=== PATIENT | male | born 1965 | race Caucasian/White ===

== ENCOUNTER 2022-08-30 14:34 | Outpatient (AMB) | payer MEDICARE, MEDICAID, SELFPAY ==
[2022-08-30 14:35] VITALS: BP 112/84; PULSE 81; O2SAT 96; BMI 26.0
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
== END 2022-08-30 16:00 | disposition home or self-care (01) ==
PROVIDERS: Visit Provider Nurse Practitioner Family
DX: R25.1 Tremor, unspecified (principal); R29.898 Other symptoms and signs involving the musculoskeletal system
CPT/HCPCS: 99204

== ENCOUNTER → 2022-08-30 14:34 | Outpatient (BNVA) | payer MEDICARE, MEDICAID, SELFPAY | PROVIDERS: Visit Provider Nurse Practitioner Family | DX: R25.1 Tremor, unspecified (principal); R29.898 Other symptoms and signs involving the musculoskeletal system | CPT/HCPCS: 99202 ==

== ENCOUNTER 2022-10-11 10:07 | Outpatient (REF) | payer MEDICARE, MEDICAID, SELFPAY ==
--- NOTE | ~2022-10-11 | MR_ITS ---
EXAMINATION: MR BRAIN WITHOUT CONTRAST CLINICAL INFORMATION: Tremor. Rigidity. COMPARISON: None. TECHNIQUE: Multiplanar, multisequence imaging of the brain was performed without contrast. FINDINGS: No diffusion abnormalities are identified to suggest an acute or subacute infarct. The ventricles are normal in size. No mass effect or midline shift is seen. Nonspecific mild bifrontal white matter signal changes noted. No extra-axial fluid collections are seen. The brainstem and cerebellum are normal. The gradient refocused acquisition is normal. The craniovertebral junction, marrow signal, and midline structures are normal. The major intracranial flow voids at the level of the mary's igloo of [place] are preserved. The dural venous sinus flow voids are maintained. The mastoid air cells and paranasal sinuses are well aerated. MR/MR head/brain wo con IMPRESSION: No acute intracranial process. Nonspecific mild scattered white matter signal changes which may be due to chronic microangiopathy.
== END 2022-10-11 10:08 | disposition home or self-care (01) ==
LOC: HO.MRI 10:07
PROVIDERS: PCP Internal Medicine; Visit Provider Nurse Practitioner Family
DX: R25.1 Tremor, unspecified (principal); R29.898 Other symptoms and signs involving the musculoskeletal system; E11.9 Type 2 diabetes mellitus without complications; E78.5 Hyperlipidemia, unspecified
CPT/HCPCS: 70551

== ENCOUNTER 2022-12-08 12:35 | Outpatient (AMB) | payer MEDICARE, MEDICAID, SELFPAY ==
--- NOTE | 2022-12-08 12:42 | MHC.OFFVIS ---
Intake Vital Signs 12/08/22 13:01 Height 5 ft 9 in Weight 182 lb BMI 26.9 BP 112/78 Blood Pressure Location Rt brachial Position Sitting Pulse 80 Pulse Source Pulse Oximeter Pulse Oximetry (%) 96 Oxygen Delivery Method Room Air Intake Visit Reasons: 3m f/u Tremors-LVM Intake Note: Patient presents for 3 month follow up tremor. Patient states since the last time i had my MRI that's all. Allergies peas Allergy (Unknown, Verified 12/08/22 13:02) Stomach Upset Seasonal Allergies Allergy (Unknown, Verified 12/08/22 13:02) Unknown olives Allergy (Unknown, Uncoded 12/08/22 13:02) Stomach Upset Medication List - Last Reconciled 12/08/22 by REYMUNDO Hagen atorvastatin 20 mg orally; mon, wed, fri bupropion HCl 100 mg PO BEDTIME cholecalciferol (vitamin D3) 50 mcg PO DAILY divalproex 500 mg PO BID loperamide 2 mg PO DAILY lorazepam 1 mg PO BEDTIME PRN metformin 500 mg PO DAILY olanzapine 10 mg PO BEDTIME propranolol 60 mg PO DAILY semaglutide (Ozempic) 0.5 mg subcut QWEEK [vitamin E 400 PO BID] HPI HPI Comments History of Present Illness Details 57-yr-old male presents for f/u visit for tremor. Pt is accompanied by his partner, Chan. Pt denies any significant interval medical changes. Pt has been doing hand therapy at [facility]- he does feel that this helped his hand strength and dexterity. 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 He feels the propranolol is still helpful, but does have still have tremor. For instance, now has tremor but is able to carry a cup w/o spilling. Sometimes has a moment of difficulty w/ word retrieval. MR/MR head/brain wo con IMPRESSION: No acute intracranial process. Nonspecific mild scattered white matter signal changes which may be due to chronic microangiopathy. [facility] Medical History (Updated 12/15/22 @ 17:19 by REYMUNDO Hagen) Diabetes HLD (hyperlipidemia) Bipolar disorder FRANK on CPAP Surgical History Hx of cholecystectomy Family History Father Lung cancer Social History Alcohol intake: never Patient Tobacco Use Status: Never used Tobacco Review of Systems Const All systems reviewed & are unremarkable except as noted in HPI and below Physical Exam Vital Signs: Last Vital Signs Pulse 80 12/08/22 13:01 BP 112/78 12/08/22 13:01 Pulse Ox 96 12/08/22 13:01 Oxygen Delivery Method Room Air 12/08/22 13:01 BMI result Body Mass Index 26.9 Const General: cooperative and no acute distress Orientation/consciousness: patient oriented x3 HEENT Head: Yes normocephalic Resp Effort & Inspection: normal respiratory effort and able to speak in complete sentences Neuro Other: General: A&O x's 3 Expression: Mild decreased expression Voice: Intact Tremor: Predominantly L > R postural and kinetic tremor. BUE rest tremor elicited by BLE foot taps. Mild chin tremor. Tone: BUE rigidity- wrists and elbows Dyskinesia: None FFM: Ok Foot taps: Slightly decreased fluidity Gait: Stands easily, slight stoop in shoulder with decreased arm swing, narrow heel base, but steady gait. Psych: Pleasant affect General: patient oriented x3 and CN's II-XI intact bilaterally Cognition (Neuro): normal cognition Motor exam (neuro): 5/5 motor strength present throughout Psych Appearance: grossly normal Mental Status: mental status grossly normal Speech and movement: Clear speech present Attitude: cooperative Assessment & Plan Assessment & Plan (1) Tremor: Comment: DDX- neuroleptic induced tremor/rigidity; ET; idiopathic early PD Code(s): R25.1 - Tremor, unspecified (2) Rigidity: Code(s): R29.898 - Other symptoms and signs involving the musculoskeletal system Plan Reviewed brain MRI- mild scattered white matter changes likely chronic microangiopathic changes. Findings would not account for pt's s/s. Continue Propranolol 60mg qd- consider adjusting if tremor becomes more bothersome. Continue OT exercises. Concur with volunteering as a PT patient. Monitor cognition. f/u in 3 months or sooner prn. Medications: New propranolol ER 60 mg PO BEDTIME 30 days 30 caps 6RF Coding Level of Care Code Est Pt Level 4 (71129) Diagnoses Tremor R25.1 Rigidity R29.898
[2022-12-08 13:01] VITALS: BP 112/78; PULSE 80; O2SAT 96; BMI 26.9
== END 2022-12-08 13:32 | disposition home or self-care (01) ==
PROVIDERS: PCP Internal Medicine; Visit Provider Nurse Practitioner Family
DX: R25.1 Tremor, unspecified (principal); R29.898 Other symptoms and signs involving the musculoskeletal system
CPT/HCPCS: 99214

== ENCOUNTER → 2022-12-08 12:35 | Outpatient (BNVA) | payer MEDICARE, MEDICAID, SELFPAY | PROVIDERS: PCP Internal Medicine; Visit Provider Nurse Practitioner Family | DX: R25.1 Tremor, unspecified (principal); R29.898 Other symptoms and signs involving the musculoskeletal system | CPT/HCPCS: 99212 ==

== ENCOUNTER 2023-07-13 13:35 | Outpatient (AMB) | payer MEDICARE, MEDICAID, SELFPAY ==
--- NOTE | 2023-07-13 13:40 | MHC.OFFVIS ---
Vital Signs 07/13/23 13:52 Height 5 ft 9 in Weight 179 lb 4 oz BMI 26.5 BP 112/78 Blood Pressure Location Lt brachial Position Sitting Pulse 76 Pulse Source Pulse Oximeter Pulse Oximetry (%) 97 Oxygen Delivery Method Room Air Intake Visit Reasons: 3m f/u Tremors-LVM Intake Note: Patients presents 3 months f/u Tremors. Tremors are getting much better. Propranol is working but would like to know if theres another med that would work better. Allergies peas Allergy (Unknown, Verified 07/13/23 13:50) Stomach Upset Seasonal Allergies Allergy (Unknown, Verified 07/13/23 13:50) Unknown olives Allergy (Unknown, Uncoded 12/08/22 13:02) Stomach Upset Medication List - Last Reconciled 07/13/23 by Indy Carpenter MD atorvastatin 20 mg orally; mon, wed, fri bupropion HCl 100 mg PO BEDTIME cholecalciferol (vitamin D3) 50 mcg PO DAILY divalproex 500 mg PO BID loperamide 2 mg PO DAILY lorazepam 1 mg PO BEDTIME PRN metformin 500 mg PO DAILY olanzapine 10 mg PO BEDTIME propranolol ER 60 mg PO BEDTIME 30 days semaglutide (Ozempic) 0.5 mg subcut QWEEK [vitamin E 400 PO BID] HPI Comments Details: 58-yr-old Right handed male presents for f/u visit for tremor. Pt is accompanied by his partner, Chan. Pt denies any significant interval medical changes. Pt has been doing hand therapy at [facility]- he does feel that this helped his hand strength and dexterity. 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 He feels the propranolol is still helpful, but does have still have tremor. For instance, now has tremor but is able to carry a cup w/o spilling. when he is stressed the tremors worsen significantly.His right hand tremors are worse. Sometimes has a moment of difficulty w/ word retrieval. Voice- normal but more methodical No drooling? Handwriting- smaller difficulty eating He can dress and shower He has trouble turning in bed. His gait is slower. NO REM behavior disorder No constipation MR/MR head/brain wo con IMPRESSION: No acute intracranial process. Nonspecific mild scattered white matter signal changes which may be due to chronic microangiopathy. PFSH Medical History Diabetes HLD (hyperlipidemia) Bipolar disorder FRANK on CPAP Surgical History Hx of cholecystectomy Family History Father Lung cancer Social History Alcohol intake: never Patient Tobacco Use Status: Never used Tobacco Physical Exam Vital Signs: Last Vital Signs Pulse 76 07/13/23 13:52 BP 112/78 07/13/23 13:52 Pulse Ox 97 07/13/23 13:52 Oxygen Delivery Method Room Air 07/13/23 13:52 BMI result Body Mass Index 26.5 Const General: cooperative and no acute distress Orientation/consciousness: patient oriented x3 HEENT Head: Yes normocephalic Resp Effort & Inspection: normal respiratory effort and able to speak in complete sentences Neuro Other: Severely decreased facial expression , blink Right UE rest tremors Tricia Ue postural tremors Right UE cog wheel rigidity FFM and foot taps decreased tricia Gait - stooped ,d ecreased arm swings tricia R>L General: patient oriented x3 and CN's II-XI intact bilaterally Cognition (Neuro): normal cognition Motor exam (neuro): 5/5 motor strength present throughout Psych Appearance: grossly normal Mental Status: mental status grossly normal Speech and movement: Clear speech present Attitude: cooperative Assessment & Plan Assessment & Plan (1) Tremor: Comment: DDX- neuroleptic induced tremor/rigidity; ET; idiopathic early PD? Code(s): R25.1 - Tremor, unspecified Category: Medical (2) Rigidity: Code(s): R29.898 - Other symptoms and signs involving the musculoskeletal system Category: Medical Plan Epifanio scan - to confirm Parkinsons disease Continue Propranolol 60mg qd- consider adjusting if tremor becomes more bothersome. Continue OT exercises. Concur with volunteering as a PT patient. Monitor cognition. f/u in 3 months or sooner prn. Orders: Orders DaTscan 07/13/23 R25.1 - Tremor, unspecified, R29.898 - Other symptoms and signs involving the musculoskeletal system Medications: Refilled propranolol ER 60 mg PO BEDTIME 30 caps 6RF 30 days Scribe Plan - Not visible on output: Reviewed possible medication side effects, including but not limited to drowsiness, dizziness. Coding Level of Care Code Est Pt Level 4 (45148) Diagnoses Tremor R25.1 Rigidity R29.898
[2023-07-13 13:52] VITALS: BP 112/78; PULSE 76; O2SAT 97; BMI 26.5
== END 2023-07-13 14:36 | disposition home or self-care (01) ==
PROVIDERS: PCP Internal Medicine; Visit Provider Psychiatry & Neurology Neurology
DX: R25.1 Tremor, unspecified (principal); R29.898 Other symptoms and signs involving the musculoskeletal system
CPT/HCPCS: 99214

== ENCOUNTER → 2023-07-13 13:35 | Outpatient (BNVA) | payer MEDICARE, MEDICAID, SELFPAY | PROVIDERS: PCP Internal Medicine; Visit Provider Nurse Practitioner Family | DX: R25.1 Tremor, unspecified (principal); R29.898 Other symptoms and signs involving the musculoskeletal system | CPT/HCPCS: 99212 ==

== ENCOUNTER 2023-10-05 09:44 | Outpatient (AMB) | payer MEDICARE, MEDICAID, SELFPAY ==
--- NOTE | 2023-10-05 09:49 | A.OFFVIS_ITS ---
Vital Signs 10/05/23 09:51 Height 5 ft 9 in Weight 180 lb BMI 26.6 BP 106/60 Blood Pressure Location Rt brachial Position Sitting Respiration 16 Pulse 72 Pulse Source Pulse Oximeter Pulse Oximetry (%) 98 Oxygen Delivery Method Room Air Intake Visit Reasons: 3 month f/u - Confirmed Intake Note: Pt presents to the office for a 3 month follow up for rigidity and to discuss DatScan results. 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 Allergies peas Allergy (Unknown, Verified 10/05/23 09:50) Stomach Upset Seasonal Allergies Allergy (Unknown, Verified 10/05/23 09:50) Unknown olives Allergy (Unknown, Uncoded 10/05/23 09:50) Stomach Upset Medication List - Last Reconciled 10/05/23 by Indy Carpenter MD atorvastatin 20 mg orally; mon, wed, fri bupropion HCl 100 mg PO BEDTIME cholecalciferol (vitamin D3) 50 mcg PO DAILY divalproex 500 mg PO BID loperamide 2 mg PO DAILY lorazepam 1 mg PO BEDTIME PRN metformin 500 mg PO DAILY olanzapine 10 mg PO BEDTIME propranolol ER 60 mg PO BEDTIME 30 days semaglutide (Ozempic) 0.5 mg subcut QWEEK [vitamin E 400 PO BID] HPI Comments Details: 58-yr-old Right handed male presents for f/u visit for tremor. Pt is accompanied by his partner, Chan.EPIFANIO scan was normal . his hand tremors are better with OT and propranolol is helping.His tremors affects him when he ats sometimes , he is also embarrassed in social situations. Pt denies any significant interval medical changes. Sometimes has a moment of difficulty w/ word retrieval. Voice- normal but more methodical No drooling? Handwriting- smaller difficulty eating He can dress and shower He has trouble turning in bed. His gait is slower. NO REM behavior disorder No constipation MR/MR head/brain wo con IMPRESSION: No acute intracranial process. Nonspecific mild scattered white matter signal changes which may be due to chronic microangiopathy. PFSH Medical History Diabetes HLD (hyperlipidemia) Bipolar disorder FRANK on CPAP Surgical History Hx of cholecystectomy Family History Father Lung cancer Social History Alcohol intake: never Patient Tobacco Use Status: Never used Tobacco Physical Exam Vital Signs: Last Vital Signs Pulse 72 10/05/23 09:51 Resp 16 10/05/23 09:51 BP 106/60 10/05/23 09:51 Pulse Ox 98 10/05/23 09:51 Oxygen Delivery Method Room Air 10/05/23 09:51 BMI result Body Mass Index 26.6 Const General: cooperative and no acute distress Orientation/consciousness: patient oriented x3 HEENT Head: Yes normocephalic Resp Effort & Inspection: normal respiratory effort and able to speak in complete sentences Neuro Other: Severely decreased facial expression , blink Right UE rest tremors Tricia Ue postural tremors Right UE cog wheel rigidity FFM and foot taps decreased tricia Gait - stooped ,d ecreased arm swings tricia R>L General: patient oriented x3 and CN's II-XI intact bilaterally Cognition (Neuro): normal cognition Motor exam (neuro): 5/5 motor strength present throughout Psych Appearance: grossly normal Mental Status: mental status grossly normal Speech and movement: Clear speech present Attitude: cooperative Assessment & Plan Assessment & Plan (1) Tremor: Comment: DDX- neuroleptic induced tremor/rigidity; ET; idiopathic early PD? Code(s): R25.1 - Tremor, unspecified Category: Medical (2) Rigidity: Code(s): R29.898 - Other symptoms and signs involving the musculoskeletal system Category: Medical Plan Epifanio scan - results discussed Continue Propranolol 60mg qd- consider adjusting if tremor becomes more bothersome. Continue OT exercises. Concur with volunteering as a PT patient. Monitor cognition. Medications: Refilled propranolol ER 60 mg PO BEDTIME 30 days 30 caps 6RF Scribe Plan - Not visible on output: Reviewed possible medication side effects, including but not limited to drowsiness, dizziness. Coding Level of Care Code Est Pt Level 4 (85936) Diagnoses Tremor R25.1 Rigidity R29.898
[2023-10-05 09:51] VITALS: BP 106/60; PULSE 72; RESP 16; O2SAT 98; BMI 26.6
== END 2023-10-05 10:26 | disposition home or self-care (01) ==
PROVIDERS: PCP Internal Medicine; Visit Provider Psychiatry & Neurology Neurology
DX: R25.1 Tremor, unspecified (principal); R29.898 Other symptoms and signs involving the musculoskeletal system
CPT/HCPCS: 99214

== ENCOUNTER → 2023-10-05 09:44 | Outpatient (BNVA) | payer MEDICARE, MEDICAID, SELFPAY | PROVIDERS: PCP Internal Medicine; Visit Provider Psychiatry & Neurology Neurology | DX: R25.1 Tremor, unspecified (principal); R29.898 Other symptoms and signs involving the musculoskeletal system | CPT/HCPCS: 99212 ==

== ENCOUNTER 2024-10-03 14:40 | Outpatient (AMB) | payer MEDICARE, MEDICAID, SELFPAY ==
[2024-10-03 14:41] VITALS: BP 102/70; PULSE 77; O2SAT 97; BMI 25.0
--- NOTE | 2024-10-03 14:41 | A.OFFVIS_ITS ---
Vital Signs 10/03/24 14:41 Height 5 ft 9 in Weight 169 lb 2 oz BMI 25.0 BP 102/70 Blood Pressure Location Rt brachial Position Sitting Pulse 77 Pulse Source Pulse Oximeter Pulse Oximetry (%) 97 Oxygen Delivery Method Room Air Intake Visit Reasons: 1yr follow up Intake Note: Follow up Tremor and rigidity Asset Management Lead Required: No Accompanied by: Spouse Allergies peas Allergy (Unknown, Verified 10/03/24 14:42) Stomach Upset Seasonal Allergies Allergy (Unknown, Verified 10/03/24 14:42) Unknown olives Allergy (Unknown, Uncoded 10/05/23 09:50) Stomach Upset Medication List - Last Reconciled 10/03/24 by Indy Carpenter MD atorvastatin 20 mg orally; mon, wed, fri bupropion HCl 100 mg PO BEDTIME cholecalciferol (vitamin D3) 50 mcg PO DAILY divalproex 500 mg PO BID loperamide 2 mg PO DAILY lorazepam 1 mg PO BEDTIME PRN metformin 500 mg PO DAILY olanzapine 10 mg PO BEDTIME propranolol ER 60 mg PO BEDTIME 30 days semaglutide (Ozempic) 0.5 mg subcut QWEEK [vitamin E 400 PO BID] HPI Comments Details: 59-yr-old Right handed male presents for f/u visit for tremor. Patient feels his tremors are better. Pt is accompanied by his partner, Chan.EPIFANIO scan was normal . His hand tremors are better with OT and propranolol is helping. Pt denies any significant interval medical changes. Sometimes has a moment of difficulty w/ word retrieval. Voice- normal but more methodical No drooling? Handwriting- smaller difficulty eating He can dress and shower He has trouble turning in bed. His gait is slower. NO REM behavior disorder No constipation MR/MR head/brain wo con IMPRESSION: No acute intracranial process. Nonspecific mild scattered white matter signal changes which may be due to chronic microangiopathy. [facility] Medical History Diabetes HLD (hyperlipidemia) Bipolar disorder FRANK on CPAP Surgical History Hx of cholecystectomy Family History Father Lung cancer Social History Alcohol intake: never Patient Tobacco Use Status: Never used Tobacco Physical Exam Vital Signs: Last Vital Signs Pulse 77 10/03/24 14:41 BP 102/70 10/03/24 14:41 Pulse Ox 97 10/03/24 14:41 Oxygen Delivery Method Room Air 10/03/24 14:41 BMI result Body Mass Index 25.0 Const General: cooperative and no acute distress Orientation/consciousness: patient oriented x3 HEENT Head: Yes normocephalic Resp Effort & Inspection: normal respiratory effort and able to speak in complete sentences Neuro Other: moderately decreased facial expression , blink No rest tremors Tricia Ue postural tremors Right UE cog wheel rigidity - milder than last visit FFM and foot taps decreased tricia Gait - stooped ,decreased arm swings tricia R>L General: patient oriented x3 and CN's II-XI intact bilaterally Cognition (Neuro): normal cognition Motor exam (neuro): 5/5 motor strength present throughout Psych Appearance: grossly normal Mental Status: mental status grossly normal Speech and movement: Clear speech present Attitude: cooperative Assessment & Plan Assessment & Plan (1) Tremor: Comment: DDX- neuroleptic induced tremor/rigidity; ET; EPIFANIO negative Code(s): R25.1 - Tremor, unspecified Category: Medical (2) Rigidity: Code(s): R29.898 - Other symptoms and signs involving the musculoskeletal system Category: Medical (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 Continue OT exercises. Monitor cognition. Orders: Orders PT Evaluation and Treatment Today G21.11 - Neuroleptic induced parkinsonism, R25.1 - Tremor, unspecified, T43.505A - Adverse effect of unspecified antipsychotics and neuroleptics, initial encounter Scribe Plan - Not visible on output: Reviewed possible medication side effects, including but not limited to drowsiness, dizziness. 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
--- OUTSIDE RECORDS SUMMARY | 2024-10-03 14:45 | XMS_ITS | Clinical Summary ---
Author Organization [facility] Address [address] [address] Phone Care Team Providers Care Fiberglass Luggage Molder Name Role Phone Ever Zhu MD Primary Care Provider [phone] Medications atorvastatin (LIPITOR) 20 MG tablet Take 20 mg by mouth daily. 03/11/2021 Active divalproex (DEPAKOTE) [address] tablet TAKE 1 TABLET IN THE MORNING AND 2 TABLETS AT NIGHT 02/25/2021 Active buPROPion (WELLBUTRIN) 100 MG immediate release tablet Take 100 mg by mouth daily. 02/17/2021 Active LORazepam (ATIVAN) 1 MG tablet TAKE 1 TABLET BY MOUTH EVERYDAY AT BEDTIME 03/24/2021 Active OLANZapine (ZYPREXA) 7.5 MG tablet 10 mg. 01/29/2021 Active metFORMIN (GLUCOPHAGE) 500 MG tablet Take 500 mg by mouth nightly at bedtime. 02/22/2021 Active propranoloL (INDERAL) 60 MG immediate release tablet Take 60 mg by mouth daily. 03/11/2021 Active loperamide (IMODIUM) 2 mg capsule Take 2 mg by mouth 4 (four) times a day as needed for diarrhea. Active vitamin E 400 UNIT capsule Take 400 Units by mouth 2 (two) times a day. Active cholecalciferol (VITAMIN D3) 2,000 unit capsule Take by mouth daily. Active Immunizations No known immunizations Family History Medical History Relation Comments Depression Father Diabetes Father Liver disease Neg Hx Relation Status Comments Father Social History Tobacco Use Types Packs/Day Years Used Date Smoking Tobacco: Never Smokeless Tobacco: Never Alcohol Use Standard Drinks/Week Comments Never 0 (1 standard drink = 0.6 oz pur e alcohol) Education Answer Date Recorded Are you interested in more education? Not on wilbert e 06/11/2022 Are you concerned about learning? Not on file 06/11/2022 No 06/11/2022 No 06/11/2022 Digital Access Answer Date Recorded No 07/10/2022 No 07/10/2022 No 07/10/2022 Reliable internet access at home? Not on file 07/10/2022 Device with a working camera? Not on file Sex and Gender Information Value Date Recorded Sex Assigned at Male 11/06/2020 1:46 PM EDT Legal Sex Male 1:34 PM EDT Gender Identity Male 11/06/2020 1:46 PM EDT Sexual Orientation Straight 11/06/2020 1: 46 PM EDT Last Filed Vital Signs Vital Sign Reading Time Taken Comments Blood Pressure 118/73 04/07/2021 9:24 AM EST Pulse 79 04/07/2021 9:24 AM EST Temperature 36.4 C (97.6 F) 04/07/2021 9:24 AM EST Respiratory Rate - - Oxygen Saturation - - Inhaled Oxygen Concentration - - Weight 88.9 kg (196 lb) 04/07/2021 9:24 AM EST Height - - Body Mass Index - - Plan of Treatment Health Maintenance Due Date Last Done Comments Adult Td,Tdap Booster 1964 CREATININE LEVEL 1964 LIPID PANEL 1964 VALPROIC ACID (DEPAKENE) LEVEL 1964 DEPRESSION SCREENING 1976 HEPATITIS C SCREENING 1982 HIV ONE-TIME SCREENING (18-6 5 YEARS) 1982 COLOGUARD 2009 COLONOSCOPY 2009 COLORECTAL CANCER SCREENING 2009 FIT TEST 2009 FOBT 2009 SIGMOIDOSCOPY 2009 VIRTUAL COLONOSCOPY 2009 PNEUMOCOCCAL VACCINES (50+ years) (1 of 1 - PCV) 2014 ZOSTER VACCINES (1 of 2) 2014 COVID-19 VACCINE (2023-2 5 season) 2023 12/07/2020, 05/12/2020, 04/14/2020 RSV VACCINE (1 - 1-dose 75+ series) 04/17/2039 SMOKING STATUS SCREENING (On ce After 26 Yrs) Completed 04/07/2021 HEPATITIS A VACCINES Aged Out No long er eligible based on patient's age to complete this topic HIB VACCINES Aged Out No longer eligi ble based on patient's age to complete this topic MENINGOCOCCAL VACCINES (ACWY) Aged Out No longer eligible based on patient's age to complete this topic MENINGOCOCCAL VACCINES (B) Aged Out N o longer eligible based on patient's age to complete this topic Medical Devices Not on file Insurance [facility] MEDICARE PART A & B [facility] MEDIC[facility] PART A & B [facility] MEDIC[facility] PART A & [facility]IC[facility] PART A & [facility] & [facility] & [facility] MED[facility] PART [facility] & B [facility] MEDIC[facility] PART A & B Care Teams Fiberglass Luggage Molder Relationship Specialty Start Date End Date Ever Zhu MD [address] [place] [address] PCP - General Internal Medicine 11/06/20 Additional Source Comments The information contained in this document represents components of the legal health record. It is not the complete legal health record.[facility]
--- OUTSIDE RECORDS SUMMARY | 2024-10-03 14:45 | XMS_ITS | Clinical Summary ---
Author Organization [facility] Address [address] [place] [address] Care Team Providers Care Drum Printer Name Role Phone Ever Zhu MD Primary Care Provider [phone] Surgical History Surgery Date Site/Laterality Comments CHOLECYSTECTOMY PROCEDURE:CHOLECYSTECTOMY LIVER BIOPSY PROCEDURE:LIVER BIOPSY COLONOSCOPY PROCEDURE:COLONOSCOPY Medical History Medical History Date Comments Diabetes mellitus (CMS/HCC V24, CMS/HCC V28) DX:Diabetes mellitus (HCC) Bipolar affective disorder ( CMS/HCC V24, CMS/HCC V28) DX:Bipolar affective disorde r (HCC) Depression DX:Depression Family History Medical History Relation Name Comments Lung cancer Father Relation Name Status Comments Father Mother Alive Social History Tobacco Use Types Packs/Day Years Used Date Smoking Tobacco: Never Smokeless Tobacco: Never Alcohol Use Standard Drinks/Week Comments Not Currently 0 (1 standard drink = 0.6 oz pur e alcohol) Sex and Gender Information Value Date Recorded Sex Assigned at Not on file Legal Sex Male 10:59 AM EST Gender Identity Not on file Sexual Orientation Not on file Obstetrics History Last Filed Vital Signs Vital Sign Reading Time Taken Comments Blood Pressure 142/78 08/26/2021 9:24 AM EDT Sitting Left arm Pulse 65 08/26/2021 9:24 AM EDT Temperature - - Respiratory Rate - - Oxygen Saturation - - Inhaled Oxygen Concentration - - Weight 86 kg (189 lb 9.6 oz) 08/26/2021 9:24 AM EDT Height 175.3 cm (5' 9 ) 08/26/2021 9:24 AM EDT Body Mass Index 28 08/26/2021 9:24 AM EDT Plan of Treatment Health Maintenance Due Date Last Done Comments DTaP,Tdap,and Td Vaccines (1 - Tdap) 04/17/1983 Pneumococcal Vaccine: 50+ Years (1 of 1 - PCV) 2014 Zoster Vaccines (1 of 2) 2014 Cholesterol Screening (Lipid Panel) 01/11/2022 Colorectal Cancer Screening: Colonoscopy 01/11/2022 HIV Screening 01/11/2022 Hepatitis C Screening 01/11/2022 Social Influencers of Health Screening 01/11/2022 COVID-19 Vaccine ( season) 2023 Depression Screening 02/14/2024 Influenza Vaccine (#1) 2024 3, 10/27/2021, 10/26/2020, Additional history exists RSV Immunization Adult Patients (1 - 1-dose 75+ series) 04/17/2039 HIB Vaccines Aged Out No longer eligi ble based on patient's age to complete this topic HPV Vaccines Aged Out No longer eligi ble based on patient's age to complete this topic Hepatitis A Vaccines Aged Out No long er eligible based on patient's age to complete this topic Hepatitis B Vaccines Aged Out No long er eligible based on patient's age to complete this topic IPV Vaccines Aged Out No longer eligi ble based on patient's age to complete this topic MMR Vaccines Aged Out No longer eligi ble based on patient's age to complete this topic Meningococcal ACWY Vaccine Aged Out N o longer eligible based on patient's age to complete this topic Meningococcal B Vaccine Aged Out No l onger eligible based on patient's age to complete this topic RSV Immunization Patients Under 20 months Aged Out No longer eligible based on patient's age to complete this topic Varicella Vaccines Aged Out No longer eligible based on patient's age to complete this topic Care Teams Drum Printer Relationship Specialty Start Date End Date Ever Zhu MD PCP - General Internal Medicine 10/12/20
--- OUTSIDE RECORDS SUMMARY | 2024-10-03 14:45 | XMS_ITS | Clinical Summary ---
Author Organization [facility] Address [address] [id number] Care Team Providers Care Cco Name Role Phone Ever Zhu MD Primary Care Provider [phone] Allergies Active Allergy Reactions Criticality Noted Date Comments Seasonal 10/12/2020 Medications Medication Sig Dispensed Refills Start Date End Date Status divalproex (DEPAKOTE) [address] tablet Take 500 mg by mouth 3 (three) times a day. 0 Active buPROPion HCl (WELLBUTRIN PO)Indications:Dose unknown Take by mouth. 0 Active LORAZEPAM POIndications:Dose unknown Take by mouth. 0 Active OLANZapine (ZyPREXA) 7.5 MG tablet Take 7.5 mg by mouth every night at bedtime. 0 Active PROPRANOLOL HCL POIndications:unknown dose Take by mouth. 0 Active METFORMIN HCL POIndications:unknown dose TID Take by mouth. 0 Active ATORVASTATIN CALCIUM POIndications:Mon-Weds- Fri (Unknown dose) Take by mouth. 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 Family History Medical History Relation Name Comments Lung cancer Father Relation Name Status Comments Father Mother Alive Social History Tobacco Use Types Packs/Day Years Used Date Smoking Tobacco: Never Smokeless Tobacco: Never Alcohol Use Standard Drinks/Week Comments Not Currently 0 (1 standard drink = 0.6 oz pur e alcohol) Sex and Gender Information Value Date Recorded Sex Assigned at Not on file Gender Identity Not on file Sexual Orientation Not on file Job Start Date Occupation Industry Not on file Not on file Not on file Last Filed Vital Signs Vital Sign Reading Time Taken Comments Blood Pressure 142/78 08/26/2021 9:24 AM EDT Pulse 65 08/26/2021 9:24 AM EDT Temperature 36.4 C (97.6 F) 08/26/2021 9:24 AM EDT Respiratory Rate - - Oxygen Saturation 98% 08/26/2021 9:24 AM EDT Inhaled Oxygen Concentration - - Weight 86 kg (189 lb 9.6 oz) 08/26/2021 9:24 AM EDT Height 175.3 cm (5' 9 ) 08/26/2021 9:24 AM EDT Body Mass Index 28 08/26/2021 9:24 AM EDT Plan of Treatment Health Maintenance Due Date Last Done Comments Hepatitis C Screening 1964 COVID-19 Vaccine (#1) 1969 Pneumococcal Vaccine (1 of 2 - PCV) 1970 Depression Screening 1976 Preventative Health Evaluation 1982 DTap / Tdap / Td (1 - Tdap) 04/17/1983 Shingrix-Zoster Vaccine (1 of 2) 04/17/1983 Colon Cancer Screening (Colonoscopy) 2009 Influenza Vaccine (#1) 2024 RSV Adult > 60+ Yrs or Pregn ant (1 - 1-dose 75+ series) 04/17/2039 Hepatitis B Vaccines Aged Out No long er eligible based on patient's age to complete this topic RSV Ped < 20 months Aged Out No longe r eligible based on patient's age to complete this topic Care Teams Cco Relationship Specialty Start Date End Date Ever Zhu MD [address] [address] PCP - General Internal Medicine 10/12/20
== END 2024-10-03 15:15 | disposition home or self-care (01) ==
LOC: HO.HSMS 14:41
PROVIDERS: PCP Internal Medicine; Visit Provider Psychiatry & Neurology Neurology
DX: G21.11 Neuroleptic induced parkinsonism (principal); R29.898 Other symptoms and signs involving the musculoskeletal system; T43.505A Adverse effect of unspecified antipsychotics and neuroleptics, initial encounter
CPT/HCPCS: 99214; G2211

== ENCOUNTER → 2024-10-03 14:40 | Outpatient (BNVA) | payer MEDICARE, MEDICAID, SELFPAY | PROVIDERS: PCP Internal Medicine; Visit Provider Psychiatry & Neurology Neurology | DX: R29.898 Other symptoms and signs involving the musculoskeletal system (principal); G21.11 Neuroleptic induced parkinsonism; T43.505A Adverse effect of unspecified antipsychotics and neuroleptics, initial encounter; Z79.84 Long term (current) use of oral hypoglycemic drugs; Z79.899 Other long term (current) drug therapy | CPT/HCPCS: 99212 ==